=== PATIENT | female | born 1975 | race Caucasian/White ===

== ENCOUNTER 2020-05-01 11:01 | Inpatient (IN) | payer SELFPAY ==
[~2020-05-01] VITALS: Ht 172.7 cm; Wt 56.8 kg
[2020-05-01 11:44] LABS: BILIRUBIN,URINE SMALL (NEG); CLARITY,URINE CLEAR; COLOR,URINE AMBER; NITRITE,URINE NEGATIVE (NEG); PH,URINE 7.5 (<5.0-8.0); PROTEIN,URINE 100 mg/dL (NEG-TRACE)
[2020-05-01 11:50] LABS: BASO # 0.1 x10^3/uL (0.0-0.2); BASO % 3 % (0-3); EOS # 0.1 x10^3/uL (0.0-0.7); EOS % 2 % (0-3); HEMATOCRIT 40.3 % (36.0-47.0); HEMOGLOBIN 14.1 g/dL (12.0-15.5); LYMPH % 23 % (24-48); MEAN CORPUSCULAR HEMOGLOBIN 33 pg (25-35); MEAN CORPUSCULAR HGB CONC 35 g/dL (31-37); MEAN CORPUSCULAR VOLUME 93 fL (79-100); MONO # 0.3 x10^3/uL (0.0-1.1); MONO % 7 % (0-9); NEUT # 2.7 x10^3/uL (1.8-7.7); NEUT % 65 % (31-73); PLATELET COUNT 192 x10^3/uL (140-400); RED BLOOD COUNT 4.32 x10^6/uL (3.50-5.40); RED CELL DISTRIBUTION WIDTH 14.8 % (11.5-14.5); WHITE BLOOD COUNT 4.1 x10^3/uL (4.0-11.0)
[2020-05-01 11:54] LABS: ALBUMIN 3.1 g/dL (3.4-5.0); ALBUMIN/GLOBULIN RATIO 0.7 (1.0-1.7); CREATININE 0.6 mg/dL (0.6-1.0); GFR 107.6; TOTAL PROTEIN 7.7 g/dL (6.4-8.2)
[2020-05-01 11:56] LABS: POTASSIUM 2.3 mmol/L (3.5-5.1)
[2020-05-01] MEDS ORDERED: chlordiazePOXIDE HCL 25 MG CAPSULE PO ONE (12:00)
[2020-05-01] MEDS ORDERED: POTASSIUM CHLORIDE 20 MEQ TABLET.ER. PO ONE (12:00)
--- NOTE | 2020-05-01 12:09 | PHYS DOC ---
General Adult EDM: Chief Complaint: SEIZURE HPI: HPI: Patient is a 44-year-old female who presents to the emergency room after having a seizure at home. Patient states that she is currently withdrawing from alcohol. Her last drink was around 8:00 last night. She typically drinks a pint of vodka every day. She drank less than usual yesterday. She has been through withdrawal before but it is been quite some time. She is never needed admission for withdrawal. Since she had her seizure her hands have been cramped up and she has been unable to fully move them. She has been having tremors, nausea, vomiting. She generally feels unwell. Review of Systems: Review of Systems: General: Denies fever, chills, sweats, fatigue Eyes: Denies drainage, blurred vision, eye redness HENT: Denies rhinorrhea, sore throat, earache Respiratory: Denies cough, shortness of breath, wheezing Cardiac: Denies edema, palpitations, chest pain GI: Denies abdominal pain.reports nausea, vomiting MSK: Denies back pain, neck pain. Reports cramping of bilateral hands Skin: Denies rash, jaundice Neuro: Reports tremors, headache, seizure Psychiatric: Denies SI/HI Heart Score: Risk Factors: Risk Factors: DM, Current or recent (<one month) smoker, HTN, HLP, family h istory of CAD, obesity. Risk Scores: Score 0 - 3: 2.5% MACE over next 6 weeks - Discharge Home Score 4 - 6: 20.3% MACE over next 6 weeks - Admit for Clinical Observation Score 7 - 10: 72.7% MACE over next 6 weeks - Early Invasive Strategies Current Medications: Current Medications Medications (Trade) Dose Ordered Sig/Nishi Start Time Stop Time Status Last Admin Dose Admin Chlordiazepoxide (Librium) 100 mg 1X ONCE 05/01/20 12:00 05/01/20 12:01 DC Lorazepam (Ativan Inj) 1 mg 1X ONCE 05/01/20 12:00 05/01/20 12:01 DC Potassium Chloride (Klor-Con) 40 meq 1X ONCE 05/01/20 12:00 05/01/20 12:01 DC Allergies: Allergies: Allergies Coded Allergies Type Severity Reaction Last Updated Verified Penicillins Allergy Unknown 05/01/20 Yes Physical Exam: PE: General: Awake, alert, cachectic. Disheveled HEENT: Atraumatic, EOMI, PERRL, airway patent, dry oral mucosa Neck: Supple, trachea midline Respiratory: CTA bilaterally, normal effort, no wheezing/crackles CV: RRR, no murmur, cap refill <2 GI: Soft, nondistended, nontender, no masses MSK: Bilateral hands with flexion and cramping in all 5 fingers Skin: Warm, dry, intact Neuro: A&O x3, speech NL, sensory and motor grossly intact, tremors Psych: Normal affect, normal mood, not suicidal or homicidal Current Patient Data: Labs: Laboratory Tests Test 05/01/20 11:27 05/01/20 11:36 White Blood Count 4.1 x10^3/uL (4.0-11.0) Red Blood Count 4.32 x10^6/uL (3.50-5.40) Hemoglobin 14.1 g/dL (12.0-15.5) Hematocrit 40.3 % (36.0-47.0) Mean Corpuscular Volume 93 fL (79-100) Mean Corpuscular Hemoglobin 33 pg (25-35) Mean Corpuscular Hemoglobin Concent 35 g/dL (31-37) Red Cell Distribution Width 14.8 % (11.5-14.5) H Platelet Count 192 x10^3/uL (140-400) Neutrophils (%) (Auto) 65 % (31-73) Lymphocytes (%) (Auto) 23 % (24-48) L Monocytes (%) (Auto) 7 % (0-9) Eosinophils (%) (Auto) 2 % (0-3) Basophils (%) (Auto) 3 % (0-3) Neutrophils # (Auto) 2.7 x10^3/uL (1.8-7.7) Lymphocytes # (Auto) 1.0 x10^3/uL (1.0-4.8) Monocytes # (Auto) 0.3 x10^3/uL (0.0-1.1) Eosinophils # (Auto) 0.1 x10^3/uL (0.0-0.7) Basophils # (Auto) 0.1 x10^3/uL (0.0-0.2) Sodium Level 140 mmol/L (136-145) Potassium Level 2.3 mmol/L (3.5-5.1) *L Chloride Level 99 mmol/L (98-107) Carbon Dioxide Level 31 mmol/L (21-32) Anion Gap 10 (6-14) Blood Urea Nitrogen 7 mg/dL (7-20) Creatinine 0.6 mg/dL (0.6-1.0) Estimated GFR (Cockcroft-Gault) 107.6 BUN/Creatinine Ratio 12 (6-20) Glucose Level 73 mg/dL (70-99) Calcium Level 8.0 mg/dL (8.5-10.1) L Total Bilirubin 1.0 mg/dL (0.2-1.0) Aspartate Amino Transferase (AST) 157 U/L (15-37) H Alanine Aminotransferase (ALT) 96 U/L (14-59) H Alkaline Phosphatase 128 U/L (46-116) H Total Protein 7.7 g/dL (6.4-8.2) Albumin 3.1 g/dL (3.4-5.0) L Albumin/Globulin Ratio 0.7 (1.0-1.7) L Ethyl Alcohol Level 81 mg/dL (0-10) H POC Urine HCG, Qualitative Hcg negative (Negative) Laboratory Tests 05/01/20 11:27 Laboratory Tests 05/01/20 11:27 EKG: EKG: [] Radiology/Procedures: Radiology/Procedures: [] Course & Med Decision Making: Course & Med Decision Making Pertinent Labs and Imaging studies reviewed. (See chart for details) Patient is a 44-year-old female with past medical history of alcohol abuse who presents to the emergency room after having a seizure at home. Patient currently is trying to quit drinking. Her presentation is highly concerning for alcohol withdrawal. She has had seizures, hypertension, tremors. Patient has cramping in bilateral hands which is concerning for hypokalemia. Labs were ordered and patient has potassium of 2.3. Replacement will be done. She will be started on Librium and given Ativan. She will be put on seizure precautions. Patient will need to be admitted Dragon Disclaimer: Dragon Disclaimer: This electronic medical record was generated, in whole or in part, using a voice recognition dictation system. Departure Departure Impression: Primary Impression: Alcohol withdrawal seizure Additional Impression: Hypokalemia Disposition: ADMITTED INPATIENT Condition: STABLE Referrals: NO PCP (PCP) Justicifation of Admission Dx: Justifications for Admission: Justification of Admission Dx: Yes SILVIA ENGEL MD May 01, 2020 12:09
[2020-05-01 12:11] LABS: BACTERIA,URINE MANY /HPF (0-FEW); HYALINE CASTS, URINE MANY /HPF; RBC,URINE 0 /HPF (0-2); SQUAMOUS EPITHELIAL CELL,UR FEW /LPF
[2020-05-01] MEDS ORDERED: POTASSIUM CHLORIDE 20MEQ 100 ML IV ONE (12:15)
[2020-05-01] MEDS ORDERED: HALOPERIDOL LACTATE 5 MG/ML VIAL. IVP PRN (15:00)
[2020-05-01] MEDS ORDERED: chlordiazePOXIDE HCL 25 MG CAPSULE PO PRN (15:00)
--- NOTE | 2020-05-01 15:01 | PDOC2 ---
NEUROLOGY CONSULT Date of Service DOS: DATE: 05/01/20 TIME: 14:55 Reason for Consult Reason for Consult: Seizure Referring Physician Referring Physician: Dr. Cooper Source Source: Chart review, Patient History of Present Illness History of Present Illness The patient is a 44-year-old right-handed female who had a seizure this morning. She drinks 1/5 of vodka a day and stop drinking last night, was planning to cut down. She has never had a seizure or delirium tremens before. She did have a head head injury a few months ago with a fall. There is no family history of seizures. She has been having tremors, nausea, vomiting. Past Medical History Cardiovascular: No pertinent hx Past Surgical History Past Surgical History: No pertinent history Family History Family History: Cancer Social History Social History , alcohol as above, no tobacco or street drugs Current Medications Current Medications Current Medications Lorazepam (Ativan Inj) 1 mg 1X ONCE IVP Last administered on 05/01/20at 12:07; Start 05/01/20 at 12:00; Stop 05/01/20 at 12:01; Status DC Chlordiazepoxide (Librium) 100 mg 1X ONCE PO Last administered on 05/01/20at 12:07; Start 05/01/20 at 12:00; Stop 05/01/20 at 12:01; Status DC Potassium Chloride (Klor-Con) 40 meq 1X ONCE PO Last administered on 05/01/20at 12:08; Start 05/01/20 at 12:00; Stop 05/01/20 at 12:01; Status DC Potassium Chloride/Water 100 ml @ 50 mls/hr 1X ONCE IV Last administered on 05/01/20at 13:32; Start 05/01/20 at 12:15; Stop 05/01/20 at 14:14; Status DC Allergies Allergies: Coded Allergies: Penicillins (Verified Allergy, Unknown, 05/01/20) ROS Review of System Negative for fever, chills, weight loss, shortness of breath, chest pain, indigestion, hematochezia, melena, and dysuria. Full 14-point review of systems is negative. Physical Exam Physical Examination General: Well-developed, well-nourished white female in no acute distress. She looks older than stated age HEENT: Normocephalic andatraumatic.Temporal arteriespulsatile and nontender. Neck: Supple without bruit, no meningismus Musculoskeletal: Stability:see neurologic. Gait exam:see neurologic. Tone:see neurologic.Strength:see neurologic. Neurological: Mental Status:orientation, memory, attention span/concentration, language, fund of knowledge: Depressed affect, knows date and location. Cranial Nerves:Pupils equal and reactive to light, extraocular movements areintact, visual [place] are full to confrontation. Facial sensation is normal. There is no facial asymmetry. Vestibulo-ocular reflex is intact. Palate elevates and tongue protrudes in midline. All other cranial related problems are negative except as mentioned before.Reflexes:2+ and symmetric with flexor plantar responses. Motor:5/5 strength with normal tone and bulk. Coordination:Finger-nose finger and ysik-go-eirp testing are normal. Rapid alternating movements and fine finger movements are intact. Gait:Not tested. Sensory:Normal pinprick, vibration, light touch, proprioception. Vitals VITALS Vital Signs Date Time Temp Pulse Resp B/P (MAP) Pulse Ox O2 Delivery O2 Flow Rate FiO2 05/01/20 11:02 98.2 76 16 192/133 (152) 96 Room Air 98.2 Labs Labs Laboratory Tests Test 05/01/20 11:10 05/01/20 11:27 05/01/20 11:36 Urine Collection Type Unknown Urine Color Sandrine Urine Clarity Clear Urine pH 7.5 (<5.0-8.0) Urine Specific [place] 1.015 (1.000-1.030) Urine Protein 100 mg/dL (NEG-TRACE) Urine Glucose (UA) Negative mg/dL (NEG) Urine Ketones (Stick) Trace mg/dL (NEG) Urine Blood Negative (NEG) Urine Nitrite Negative (NEG) Urine Bilirubin Small (NEG) Urine Urobilinogen Dipstick 1.0 mg/dL (0.2 mg/dL) Urine Leukocyte Esterase Trace (NEG) Urine RBC 0 /HPF (0-2) Urine WBC 1-4 /HPF (0-4) Urine Squamous Epithelial Cells Few /LPF Urine Bacteria Many /HPF (0-FEW) Urine Hyaline Casts Many /HPF White Blood Count 4.1 x10^3/uL (4.0-11.0) Red Blood Count 4.32 x10^6/uL (3.50-5.40) Hemoglobin 14.1 g/dL (12.0-15.5) Hematocrit 40.3 % (36.0-47.0) Mean Corpuscular Volume 93 fL (79-100) Mean Corpuscular Hemoglobin 33 pg (25-35) Mean Corpuscular Hemoglobin Concent 35 g/dL (31-37) Red Cell Distribution Width 14.8 % (11.5-14.5) Platelet Count 192 x10^3/uL (140-400) Neutrophils (%) (Auto) 65 % (31-73) Lymphocytes (%) (Auto) 23 % (24-48) Monocytes (%) (Auto) 7 % (0-9) Eosinophils (%) (Auto) 2 % (0-3) Basophils (%) (Auto) 3 % (0-3) Neutrophils # (Auto) 2.7 x10^3/uL (1.8-7.7) Lymphocytes # (Auto) 1.0 x10^3/uL (1.0-4.8) Monocytes # (Auto) 0.3 x10^3/uL (0.0-1.1) Eosinophils # (Auto) 0.1 x10^3/uL (0.0-0.7) Basophils # (Auto) 0.1 x10^3/uL (0.0-0.2) Sodium Level 140 mmol/L (136-145) Potassium Level 2.3 mmol/L (3.5-5.1) Chloride Level 99 mmol/L (98-107) Carbon Dioxide Level 31 mmol/L (21-32) Anion Gap 10 (6-14) Blood Urea Nitrogen 7 mg/dL (7-20) Creatinine 0.6 mg/dL (0.6-1.0) Estimated GFR (Cockcroft-Gault) 107.6 BUN/Creatinine Ratio 12 (6-20) Glucose Level 73 mg/dL (70-99) Calcium Level 8.0 mg/dL (8.5-10.1) Total Bilirubin 1.0 mg/dL (0.2-1.0) Aspartate Amino Transf (AST/SGOT) 157 U/L (15-37) Alanine Aminotransferase (ALT/SGPT) 96 U/L (14-59) Alkaline Phosphatase 128 U/L (46-116) Total Protein 7.7 g/dL (6.4-8.2) Albumin 3.1 g/dL (3.4-5.0) Albumin/Globulin Ratio 0.7 (1.0-1.7) Ethyl Alcohol Level 81 mg/dL (0-10) Bedside Urine HCG, Qualitative Hcg negative (Negative) Laboratory Tests Test 05/01/20 11:10 05/01/20 11:27 05/01/20 11:36 Urine Collection Type Unknown Urine Color Sandrine Urine Clarity Clear Urine pH 7.5 (<5.0-8.0) Urine Specific [place] 1.015 (1.000-1.030) Urine Protein 100 mg/dL (NEG-TRACE) Urine Glucose (UA) Negative mg/dL (NEG) Urine Ketones (Stick) Trace mg/dL (NEG) Urine Blood Negative (NEG) Urine Nitrite Negative (NEG) Urine Bilirubin Small (NEG) Urine Urobilinogen Dipstick 1.0 mg/dL (0.2 mg/dL) Urine Leukocyte Esterase Trace (NEG) Urine RBC 0 /HPF (0-2) Urine WBC 1-4 /HPF (0-4) Urine Squamous Epithelial Cells Few /LPF Urine Bacteria Many /HPF (0-FEW) Urine Hyaline Casts Many /HPF White Blood Count 4.1 x10^3/uL (4.0-11.0) Red Blood Count 4.32 x10^6/uL (3.50-5.40) Hemoglobin 14.1 g/dL (12.0-15.5) Hematocrit 40.3 % (36.0-47.0) Mean Corpuscular Volume 93 fL (79-100) Mean Corpuscular Hemoglobin 33 pg (25-35) Mean Corpuscular Hemoglobin Concent 35 g/dL (31-37) Red Cell Distribution Width 14.8 % (11.5-14.5) Platelet Count 192 x10^3/uL (140-400) Neutrophils (%) (Auto) 65 % (31-73) Lymphocytes (%) (Auto) 23 % (24-48) Monocytes (%) (Auto) 7 % (0-9) Eosinophils (%) (Auto) 2 % (0-3) Basophils (%) (Auto) 3 % (0-3) Neutrophils # (Auto) 2.7 x10^3/uL (1.8-7.7) Lymphocytes # (Auto) 1.0 x10^3/uL (1.0-4.8) Monocytes # (Auto) 0.3 x10^3/uL (0.0-1.1) Eosinophils # (Auto) 0.1 x10^3/uL (0.0-0.7) Basophils # (Auto) 0.1 x10^3/uL (0.0-0.2) Sodium Level 140 mmol/L (136-145) Potassium Level 2.3 mmol/L (3.5-5.1) Chloride Level 99 mmol/L (98-107) Carbon Dioxide Level 31 mmol/L (21-32) Anion Gap 10 (6-14) Blood Urea Nitrogen 7 mg/dL (7-20) Creatinine 0.6 mg/dL (0.6-1.0) Estimated GFR (Cockcroft-Gault) 107.6 BUN/Creatinine Ratio 12 (6-20) Glucose Level 73 mg/dL (70-99) Calcium Level 8.0 mg/dL (8.5-10.1) Total Bilirubin 1.0 mg/dL (0.2-1.0) Aspartate Amino Transf (AST/SGOT) 157 U/L (15-37) Alanine Aminotransferase (ALT/SGPT) 96 U/L (14-59) Alkaline Phosphatase 128 U/L (46-116) Total Protein 7.7 g/dL (6.4-8.2) Albumin 3.1 g/dL (3.4-5.0) Albumin/Globulin Ratio 0.7 (1.0-1.7) Ethyl Alcohol Level 81 mg/dL (0-10) Bedside Urine HCG, Qualitative Hcg negative (Negative) Assessment/Plan Assessment/Plan Impression: New seizure, probably related to alcohol withdrawal. Recommendations: She did not have brain imaging in the emergency department, I have ordered an MRI of the brain Alcohol withdrawal protocol, see orders. Thank you for letting me help with the patient's care. ZENAIDA WHITE MD May 01, 2020 15:01
[2020-05-01] MEDS: chlordiazePOXIDE HCL 25 MG CAPSULE PO PRN (16:26)
[2020-05-01] MEDS: MULTIVIT INFUSN,ADULT 4,VIT K 10 ML, THIAMINE INJ 100 MG, FOLIC ACID INJ 1 MG in IV NOR... IV SCH (16:27)
--- NOTE | 2020-05-01 16:55 | RAD ---
MRI of the brain without contrast 05/01/2020 Clinical History: Seizure Technique: Unenhanced T1-weighted sagittal and axial, FLAIR and T2-weighted axial and coronal and gradient echo and diffusion-weighted axial images of the brain were obtained. Findings: No previous imaging studies are available for comparison. Some of the images are degraded by patient motion. There is generalized parenchymal atrophy. Patchy and a few small scattered areas of increased signal intensity are seen within the periventricular and subcortical white matter of both cerebral hemispheres on the FLAIR and T2-weighted images consistent most likely with areas of very mild small vessel ischemic disease. No acute parenchymal abnormality is seen. No extra-axial fluid collection is seen. There is no MRI evidence of acute ischemia/infarction. Images through the temporal lobes are within normal limits. The paranasal sinuses are essentially clear. Normal flow voids are seen within the major vascular structures surrounding the brain parenchyma. Impression: No acute parenchymal abnormality is seen. Electronically signed by: Johnathon Bernardo MD (05/01/2020 4:51 PM) [id number]
[2020-05-01 17:13] VITALS: BP 144/119
[2020-05-01] MEDS ORDERED: IBUPROFEN 400 MG TABLET. PO PRN (17:15)
[2020-05-01] MEDS ORDERED: ACETAMINOPHEN 325 MG TABLET. PO PRN ×2 (17:15)
[2020-05-01] MEDS ORDERED: ONDANSETRON PF 4 MG/2 ML VIAL. IVP PRN (17:15)
[2020-05-01] MEDS: POTASSIUM CHLORIDE 10MEQ 100 ML IV SCH ×2 (17:28→20:14)
[2020-05-01] MEDS ORDERED: CYCLOBENZAPRINE 10 MG TABLET. PO PRN (17:30)
--- NOTE | 2020-05-01 17:43 | PDOC1 ---
History and Physical Date of Admission Date of Admission DATE: 05/01/20 TIME: 17:22 Identification/Chief Complaint Chief Complaint Alcohol withdrawal Source Source: Patient History of Present Illness History of Present Illness Patient is a 44-year-old female with past medical history of alcohol abuse, who presents to the ER due to alcohol withdrawal seizure. Patient states she drinks roughly 1 pint of liquor daily, her last drink was last night around 8:00 PM. She had a witnessed seizure-like activity by her on the morning of admission. Patient denies any history of alcohol withdrawal or alcohol withdraw al seizure previously. She is agreeable to be admitted to the hospital to get her through this withdrawal period. She admits to musculoskeletal pain "all over ". She admits to associated muscle cramps. She denies any fever or shortness of breath. K 2.3, albumin 3.1, AST 157, ALT 96, ethanol level 81 Past Medical History Past Medical History Alcohol abuse Past Surgical History Past Surgical History: No pertinent history Family History Family History: Coronary Artery Disease Social History Smoke: <1 pack per day ALCOHOL: heavy Drugs: None Current Problem List Problem List Problems Medical Problems: (1) Alcohol withdrawal seizure Status: Acute (2) Hypokalemia Status: Acute Current Medications Current Medications Current Medications Lorazepam (Ativan Inj) 1 mg 1X ONCE IVP Last administered on 05/01/20at 12:07; Start 05/01/20 at 12:00; Stop 05/01/20 at 12:01; Status DC Chlordiazepoxide (Librium) 100 mg 1X ONCE PO Last administered on 05/01/20at 12:07; Start 05/01/20 at 12:00; Stop 05/01/20 at 12:01; Status DC Potassium Chloride (Klor-Con) 40 meq 1X ONCE PO Last administered on 05/01/20at 12:08; Start 05/01/20 at 12:00; Stop 05/01/20 at 12:01; Status DC Potassium Chloride/Water 100 ml @ 50 mls/hr 1X ONCE IV Last administered on 05/01/20at 13:32; Start 05/01/20 at 12:15; Stop 05/01/20 at 14:14; Status DC Multivitamins 10 ml/Thiamine HCl 100 mg/Folic Acid 1 mg/Sodium Chloride 1,011.2 ml @ 100 mls/ hr DAILY IV Last administered on 05/01/20at 16:27; Start 05/01/20 at 15:30; Stop 05/05/20 at 19:07 Multivitamins (Thera M Plus) 1 tab DAILY PO ; Start 05/06/20 at 09:00 Folic Acid (Folic Acid) 1 mg DAILY PO ; Start 05/06/20 at 09:00 Thiamine HCl (Thiamine Im) 100 mg DAILY IM ; Start 05/06/20 at 09:00; Stop 05/11/20 at 08:59 Chlordiazepoxide (Librium) 50 mg PRN Q1HR PRN PO For CIWA 8-14 Last administered on 05/01/20at 16:26; Start 05/01/20 at 15:00 Chlordiazepoxide (Librium) 100 mg PRN Q1HR PRN PO For CIWA 15 or greater; Start 05/01/20 at 15:00 Haloperidol Lactate (Haldol Inj) 5 mg PRN Q4HRS PRN IVP Hallucinatns,Co nfusn,Delirium Last administered on 05/01/20at 16:27; Start 05/01/20 at 15:00 Clonidine HCl (Catapres) 0.1 mg PRN Q1HR PRN PO SBP > 180 or DBP > 100, MRX3; Start 05/01/20 at 15:00 Acetaminophen (Tylenol) 650 mg PRN Q6HRS PRN PO headache; Start 05/01/20 at 17:15 Potassium Chloride/Water 100 ml @ 100 mls/hr Q1H IV ; Start 05/01/20 at 18:00; Stop 05/01/20 at 19:59 Lorazepam (Ativan Inj) 1 mg PRN Q4HRS PRN IVP ANXIETY / AGITATION; Start 05/01/20 at 17:15 Ondansetron HCl (Zofran) 4 mg PRN Q6HRS PRN IVP NAUSEA/VOMITING; Start 05/01/20 at 17:15 Zolpidem Tartrate (Ambien) 5 mg PRN QHS PRN PO INSOMNIA, MAY REPEAT IN 1HR; Start 05/01/20 at 17:15 Acetaminophen (Tylenol) 650 mg PRN Q6HRS PRN PO Headaches, Temp > 101.5F; Start 05/01/20 at 17:15 Ibuprofen (Motrin) 400 mg PRN Q6HRS PRN PO MILD PAIN 1-3; Start 05/01/20 at 17:15 Cyclobenzaprine HCl (Flexeril) 10 mg PRN Q6HRS PRN PO MUSCLE PAIN; Start 05/01/20 at 17:30 Allergies Allergies: Coded Allergies: Penicillins (Verified Allergy, Unknown, 05/01/20) ROS Review of System GENERAL: No history of weight change, weakness or fevers. SKIN: No bruising, hair changes or rashes. EYES: No blurred, double or loss of vision. NOSE AND THROAT: No history of nosebleeds, hoarseness or sore throat. HEART: Denies chest pain, denies palpitations. LUNGS: Denies cough, hemoptysis, wheezing or shortness of breath. GASTROINTESTINAL: Denies nausea, vomiting, abdominal pain. GENITOURINARY: Denies dysuria, frequency, urgency, hematuria. NEUROLOGIC: Seizure. Denies history of numbness, tingling, tremor or weakness. PSYCHIATRIC: Denies anxiety, denies depression. ENDOCRINE: No history of heat or cold intolerance, polyuria or polydipsia. EXTREMITIES: Muscle cramps. Denies muscle weakness, pain on walking or stiffness. Physical Exam Physical Exam General: Alert, Oriented X3, Cooperative, No acute distress HEENT: PERRLA, EOMI Lungs: Clear to auscultation, Normal air movement Heart: RRR, no murmurs Cardiovascular: S1, S2 Abdomen: Normal bowel sounds, Soft, No tenderness Extremities: No clubbing, No cyanosis Skin: No rashes, No significant lesion Neuro: Normal speech, Normal tone, Sensation intact Psych/Mental Status: Mental status NL, Mood NL Vitals Vitals Vital Signs Date Time Temp Pulse Resp B/P (MAP) Pulse Ox O2 Delivery O2 Flow Rate FiO2 05/01/20 17:13 98.2 89 18 144/119 (127) 98 Room Air 98.2 Labs Labs Laboratory Tests Test 05/01/20 11:10 05/01/20 11:27 05/01/20 11:36 Urine Collection Type Unknown Urine Color Sandrine Urine Clarity Clear Urine pH 7.5 (<5.0-8.0) Urine Specific [place] 1.015 (1.000-1.030) Urine Protein 100 mg/dL (NEG-TRACE) Urine Glucose (UA) Negative mg/dL (NEG) Urine Ketones (Stick) Trace mg/dL (NEG) Urine Blood Negative (NEG) Urine Nitrite Negative (NEG) Urine Bilirubin Small (NEG) Urine Urobilinogen Dipstick 1.0 mg/dL (0.2 mg/dL) Urine Leukocyte Esterase Trace (NEG) Urine RBC 0 /HPF (0-2) Urine WBC 1-4 /HPF (0-4) Urine Squamous Epithelial Cells Few /LPF Urine Bacteria Many /HPF (0-FEW) Urine Hyaline Casts Many /HPF White Blood Count 4.1 x10^3/uL (4.0-11.0) Red Blood Count 4.32 x10^6/uL (3.50-5.40) Hemoglobin 14.1 g/dL (12.0-15.5) Hematocrit 40.3 % (36.0-47.0) Mean Corpuscular Volume 93 fL (79-100) Mean Corpuscular Hemoglobin 33 pg (25-35) Mean Corpuscular Hemoglobin Concent 35 g/dL (31-37) Red Cell Distribution Width 14.8 % (11.5-14.5) Platelet Count 192 x10^3/uL (140-400) Neutrophils (%) (Auto) 65 % (31-73) Lymphocytes (%) (Auto) 23 % (24-48) Monocytes (%) (Auto) 7 % (0-9) Eosinophils (%) (Auto) 2 % (0-3) Basophils (%) (Auto) 3 % (0-3) Neutrophils # (Auto) 2.7 x10^3/uL (1.8-7.7) Lymphocytes # (Auto) 1.0 x10^3/uL (1.0-4.8) Monocytes # (Auto) 0.3 x10^3/uL (0.0-1.1) Eosinophils # (Auto) 0.1 x10^3/uL (0.0-0.7) Basophils # (Auto) 0.1 x10^3/uL (0.0-0.2) Sodium Level 140 mmol/L (136-145) Potassium Level 2.3 mmol/L (3.5-5.1) Chloride Level 99 mmol/L (98-107) Carbon Dioxide Level 31 mmol/L (21-32) Anion Gap 10 (6-14) Blood Urea Nitrogen 7 mg/dL (7-20) Creatinine 0.6 mg/dL (0.6-1.0) Estimated GFR (Cockcroft-Gault) 107.6 BUN/Creatinine Ratio 12 (6-20) Glucose Level 73 mg/dL (70-99) Calcium Level 8.0 mg/dL (8.5-10.1) Total Bilirubin 1.0 mg/dL (0.2-1.0) Aspartate Amino Transf (AST/SGOT) 157 U/L (15-37) Alanine Aminotransferase (ALT/SGPT) 96 U/L (14-59) Alkaline Phosphatase 128 U/L (46-116) Total Protein 7.7 g/dL (6.4-8.2) Albumin 3.1 g/dL (3.4-5.0) Albumin/Globulin Ratio 0.7 (1.0-1.7) Ethyl Alcohol Level 81 mg/dL (0-10) Bedside Urine HCG, Qualitative Hcg negative (Negative) Laboratory Tests Test 05/01/20 11:10 05/01/20 11:27 05/01/20 11:36 Urine Collection Type Unknown Urine Color Sandrine Urine Clarity Clear Urine pH 7.5 (<5.0-8.0) Urine Specific [place] 1.015 (1.000-1.030) Urine Protein 100 mg/dL (NEG-TRACE) Urine Glucose (UA) Negative mg/dL (NEG) Urine Ketones (Stick) Trace mg/dL (NEG) Urine Blood Negative (NEG) Urine Nitrite Negative (NEG) Urine Bilirubin Small (NEG) Urine Urobilinogen Dipstick 1.0 mg/dL (0.2 mg/dL) Urine Leukocyte Esterase Trace (NEG) Urine RBC 0 /HPF (0-2) Urine WBC 1-4 /HPF (0-4) Urine Squamous Epithelial Cells Few /LPF Urine Bacteria Many /HPF (0-FEW) Urine Hyaline Casts Many /HPF White Blood Count 4.1 x10^3/uL (4.0-11.0) Red Blood Count 4.32 x10^6/uL (3.50-5.40) Hemoglobin 14.1 g/dL (12.0-15.5) Hematocrit 40.3 % (36.0-47.0) Mean Corpuscular Volume 93 fL (79-100) Mean Corpuscular Hemoglobin 33 pg (25-35) Mean Corpuscular Hemoglobin Concent 35 g/dL (31-37) Red Cell Distribution Width 14.8 % (11.5-14.5) Platelet Count 192 x10^3/uL (140-400) Neutrophils (%) (Auto) 65 % (31-73) Lymphocytes (%) (Auto) 23 % (24-48) Monocytes (%) (Auto) 7 % (0-9) Eosinophils (%) (Auto) 2 % (0-3) Basophils (%) (Auto) 3 % (0-3) Neutrophils # (Auto) 2.7 x10^3/uL (1.8-7.7) Lymphocytes # (Auto) 1.0 x10^3/uL (1.0-4.8) Monocytes # (Auto) 0.3 x10^3/uL (0.0-1.1) Eosinophils # (Auto) 0.1 x10^3/uL (0.0-0.7) Basophils # (Auto) 0.1 x10^3/uL (0.0-0.2) Sodium Level 140 mmol/L (136-145) Potassium Level 2.3 mmol/L (3.5-5.1) Chloride Level 99 mmol/L (98-107) Carbon Dioxide Level 31 mmol/L (21-32) Anion Gap 10 (6-14) Blood Urea Nitrogen 7 mg/dL (7-20) Creatinine 0.6 mg/dL (0.6-1.0) Estimated GFR (Cockcroft-Gault) 107.6 BUN/Creatinine Ratio 12 (6-20) Glucose Level 73 mg/dL (70-99) Calcium Level 8.0 mg/dL (8.5-10.1) Total Bilirubin 1.0 mg/dL (0.2-1.0) Aspartate Amino Transf (AST/SGOT) 157 U/L (15-37) Alanine Aminotransferase (ALT/SGPT) 96 U/L (14-59) Alkaline Phosphatase 128 U/L (46-116) Total Protein 7.7 g/dL (6.4-8.2) Albumin 3.1 g/dL (3.4-5.0) Albumin/Globulin Ratio 0.7 (1.0-1.7) Ethyl Alcohol Level 81 mg/dL (0-10) Bedside Urine HCG, Qualitative Hcg negative (Negative) VTE Prophylaxis Ordered VTE Prophylaxis Devices: Yes VTE Pharmacological Prophylaxi: No Assessment/Plan Assessment/Plan Alcohol withdrawal Alcohol withdrawal seizures Hypokalemia Malnutrition Plan: We will admit patient for alcohol withdrawals and withdrawal seizure. Thiamine 100 mg IM daily, folic acid 1 mg daily, daily multivitamin. Librium 50 mg as needed, Ativan 1 mg as needed withdrawal symptoms. Haldol 5 mg as needed hallucinations, clonidine 0.1 mg as needed for hypertension. Consult to neurology due to seizure activity. MRI pending. Seizure activity likely secondary to alcohol withdrawals. Replace potassium as needed. Will check magnesium and phosphorus in the morning. FEN - Cardiac diet PPX -pneumatic compression devices FULL CODE Dispo - inpatient for above Justifications for Admission Other Justification Alcohol withdrawal MAURILIO LANDERS MD May 01, 2020 17:43
[2020-05-01 19:30] VITALS: BP 174/122
[2020-05-01] MEDS: ZOLPIDEM 5 MG TABLET. PO PRN ×2 (20:15→23:06)
[2020-05-01] MEDS: cloNIDine HCL 0.1 MG TABLET PO PRN (23:06)
[2020-05-01 23:12] VITALS: BP 186/129
[2020-05-02 02:55] VITALS: BP 172/132
[2020-05-02 04:31] LABS: BASO # 0.1 x10^3/uL (0.0-0.2); BASO % 1 % (0-3); EOS # 0.2 x10^3/uL (0.0-0.7); EOS % 3 % (0-3); HEMATOCRIT 39.7 % (36.0-47.0); HEMOGLOBIN 13.3 g/dL (12.0-15.5); LYMPH # 1.5 x10^3/uL (1.0-4.8); LYMPH % 34 % (24-48); MEAN CORPUSCULAR HEMOGLOBIN 32 pg (25-35); MEAN CORPUSCULAR HGB CONC 34 g/dL (31-37); MEAN CORPUSCULAR VOLUME 96 fL (79-100); MONO # 0.4 x10^3/uL (0.0-1.1); MONO % 8 % (0-9); NEUT # 2.4 x10^3/uL (1.8-7.7); NEUT % 54 % (31-73); PLATELET COUNT 143 x10^3/uL (140-400); RED BLOOD COUNT 4.15 x10^6/uL (3.50-5.40); RED CELL DISTRIBUTION WIDTH 14.3 % (11.5-14.5); WHITE BLOOD COUNT 4.5 x10^3/uL (4.0-11.0)
[2020-05-02 04:42] LABS: CALCIUM 8.3 mg/dL (8.5-10.1); CREATININE 0.6 mg/dL (0.6-1.0); GFR 107.6
[2020-05-02 04:44] LABS: POTASSIUM 2.7 mmol/L (3.5-5.1)
[2020-05-02 04:47] LABS: MAGNESIUM 1.6 mg/dL (1.8-2.4); PHOSPHORUS 3.7 mg/dL (2.6-4.7)
[2020-05-02] MEDS ORDERED: POTASSIUM CHLORIDE 20 MEQ TABLET.ER. PO ONE (06:00)
[2020-05-02 07:00] VITALS: BP 151/119
[2020-05-02] MEDS: cloNIDine HCL 0.1 MG TABLET PO PRN ×2 (08:23→10:26)
[2020-05-02] MEDS: chlordiazePOXIDE HCL 25 MG CAPSULE PO PRN ×2 (08:50→10:41)
--- NOTE | 2020-05-02 09:04 | PDOC ---
PROGRESS NOTES Date of Service DATE: 05/02/20 TIME: 09:02 Assessment Problems Medical Problems: (1) Alcohol withdrawal seizure Status: Acute (2) Hypokalemia Status: Acute New seizure, related to alcohol withdrawal. Plan Psychiatric assessment team Alcohol withdrawal protocol Discharge as soon as later today. Subjective Feels tremulous, strongly wants to quit alcohol use Objective Vital Signs Date Time Temp Pulse Resp B/P (MAP) Pulse Ox O2 Delivery O2 Flow Rate FiO2 05/02/20 08:30 Room Air 05/02/20 08:23 69 151/119 05/02/20 02:55 97.7 16 95 97.7 Intake and Output 05/02/20 07:00 Intake Total 2050 ml Balance 2050 ml Intake Oral 650 ml IV Total 100 ml Other 1300 ml # Voids 5 PHYSICAL EXAM Alert. Oriented to time, place and person. Tearfully asking for help with her alcoholism PERRL. EOMI. CN: no focal findings. Muscle tone: normal. Muscle strength: 5/5 DTR: 2+ Plantar reflex: flexor Gait: not examined in bed. Sensory exam: no abnormal findings. No cerebellar signs elicited. Review of Relevant I have reviewed the following items danny (where applicable) has been applied. Labs Laboratory Tests Test 05/01/20 11:10 05/01/20 11:27 05/01/20 11:36 05/02/20 03:35 Urine Collection Type Unknown Urine Color Sandrine Urine Clarity Clear Urine pH 7.5 (<5.0-8.0) Urine Specific [place] 1.015 (1.000-1.030) Urine Protein 100 mg/dL (NEG-TRACE) Urine Glucose (UA) Negative mg/dL (NEG) Urine Ketones (Stick) Trace mg/dL (NEG) Urine Blood Negative (NEG) Urine Nitrite Negative (NEG) Urine Bilirubin Small (NEG) Urine Urobilinogen Dipstick 1.0 mg/dL (0.2 mg/dL) Urine Leukocyte Esterase Trace (NEG) Urine RBC 0 /HPF (0-2) Urine WBC 1-4 /HPF (0-4) Urine Squamous Epithelial Cells Few /LPF Urine Bacteria Many /HPF (0-FEW) Urine Hyaline Casts Many /HPF White Blood Count 4.1 x10^3/uL (4.0-11.0) 4.5 x10^3/uL (4.0-11.0) Red Blood Count 4.32 x10^6/uL (3.50-5.40) 4.15 x10^6/uL (3.50-5.40) Hemoglobin 14.1 g/dL (12.0-15.5) 13.3 g/dL (12.0-15.5) Hematocrit 40.3 % (36.0-47.0) 39.7 % (36.0-47.0) Mean Corpuscular Volume 93 fL (79-100) 96 fL (79-100) Mean Corpuscular Hemoglobin 33 pg (25-35) 32 pg (25-35) Mean Corpuscular Hemoglobin Concent 35 g/dL (31-37) 34 g/dL (31-37) Red Cell Distribution Width 14.8 % (11.5-14.5) 14.3 % (11.5-14.5) Platelet Count 192 x10^3/uL (140-400) 143 x10^3/uL (140-400) Neutrophils (%) (Auto) 65 % (31-73) 54 % (31-73) Lymphocytes (%) (Auto) 23 % (24-48) 34 % (24-48) Monocytes (%) (Auto) 7 % (0-9) 8 % (0-9) Eosinophils (%) (Auto) 2 % (0-3) 3 % (0-3) Basophils (%) (Auto) 3 % (0-3) 1 % (0-3) Neutrophils # (Auto) 2.7 x10^3/uL (1.8-7.7) 2.4 x10^3/uL (1.8-7.7) Lymphocytes # (Auto) 1.0 x10^3/uL (1.0-4.8) 1.5 x10^3/uL (1.0-4.8) Monocytes # (Auto) 0.3 x10^3/uL (0.0-1.1) 0.4 x10^3/uL (0.0-1.1) Eosinophils # (Auto) 0.1 x10^3/uL (0.0-0.7) 0.2 x10^3/uL (0.0-0.7) Basophils # (Auto) 0.1 x10^3/uL (0.0-0.2) 0.1 x10^3/uL (0.0-0.2) Sodium Level 140 mmol/L (136-145) 140 mmol/L (136-145) Potassium Level 2.3 mmol/L (3.5-5.1) 2.7 mmol/L (3.5-5.1) Chloride Level 99 mmol/L (98-107) 101 mmol/L (98-107) Carbon Dioxide Level 31 mmol/L (21-32) 32 mmol/L (21-32) Anion Gap 10 (6-14) 7 (6-14) Blood Urea Nitrogen 7 mg/dL (7-20) 10 mg/dL (7-20) Creatinine 0.6 mg/dL (0.6-1.0) 0.6 mg/dL (0.6-1.0) Estimated GFR (Cockcroft-Gault) 107.6 107.6 BUN/Creatinine Ratio 12 (6-20) Glucose Level 73 mg/dL (70-99) 86 mg/dL (70-99) Calcium Level 8.0 mg/dL (8.5-10.1) 8.3 mg/dL (8.5-10.1) Total Bilirubin 1.0 mg/dL (0.2-1.0) Aspartate Amino Transf (AST/SGOT) 157 U/L (15-37) Alanine Aminotransferase (ALT/SGPT) 96 U/L (14-59) Alkaline Phosphatase 128 U/L (46-116) Total Protein 7.7 g/dL (6.4-8.2) Albumin 3.1 g/dL (3.4-5.0) Albumin/Globulin Ratio 0.7 (1.0-1.7) Ethyl Alcohol Level 81 mg/dL (0-10) Bedside Urine HCG, Qualitative Hcg negative (Negative) Phosphorus Level 3.7 mg/dL (2.6-4.7) Magnesium Level 1.6 mg/dL (1.8-2.4) Creatine Kinase 147 U/L (26-192) Laboratory Tests Test 05/01/20 11:10 05/01/20 11:27 05/01/20 11:36 05/02/20 03:35 Urine Collection Type Unknown Urine Color Sandrine Urine Clarity Clear Urine pH 7.5 (<5.0-8.0) Urine Specific [place] 1.015 (1.000-1.030) Urine Protein 100 mg/dL (NEG-TRACE) Urine Glucose (UA) Negative mg/dL (NEG) Urine Ketones (Stick) Trace mg/dL (NEG) Urine Blood Negative (NEG) Urine Nitrite Negative (NEG) Urine Bilirubin Small (NEG) Urine Urobilinogen Dipstick 1.0 mg/dL (0.2 mg/dL) Urine Leukocyte Esterase Trace (NEG) Urine RBC 0 /HPF (0-2) Urine WBC 1-4 /HPF (0-4) Urine Squamous Epithelial Cells Few /LPF Urine Bacteria Many /HPF (0-FEW) Urine Hyaline Casts Many /HPF White Blood Count 4.1 x10^3/uL (4.0-11.0) 4.5 x10^3/uL (4.0-11.0) Red Blood Count 4.32 x10^6/uL (3.50-5.40) 4.15 x10^6/uL (3.50-5.40) Hemoglobin 14.1 g/dL (12.0-15.5) 13.3 g/dL (12.0-15.5) Hematocrit 40.3 % (36.0-47.0) 39.7 % (36.0-47.0) Mean Corpuscular Volume 93 fL (79-100) 96 fL (79-100) Mean Corpuscular Hemoglobin 33 pg (25-35) 32 pg (25-35) Mean Corpuscular Hemoglobin Concent 35 g/dL (31-37) 34 g/dL (31-37) Red Cell Distribution Width 14.8 % (11.5-14.5) 14.3 % (11.5-14.5) Platelet Count 192 x10^3/uL (140-400) 143 x10^3/uL (140-400) Neutrophils (%) (Auto) 65 % (31-73) 54 % (31-73) Lymphocytes (%) (Auto) 23 % (24-48) 34 % (24-48) Monocytes (%) (Auto) 7 % (0-9) 8 % (0-9) Eosinophils (%) (Auto) 2 % (0-3) 3 % (0-3) Basophils (%) (Auto) 3 % (0-3) 1 % (0-3) Neutrophils # (Auto) 2.7 x10^3/uL (1.8-7.7) 2.4 x10^3/uL (1.8-7.7) Lymphocytes # (Auto) 1.0 x10^3/uL (1.0-4.8) 1.5 x10^3/uL (1.0-4.8) Monocytes # (Auto) 0.3 x10^3/uL (0.0-1.1) 0.4 x10^3/uL (0.0-1.1) Eosinophils # (Auto) 0.1 x10^3/uL (0.0-0.7) 0.2 x10^3/uL (0.0-0.7) Basophils # (Auto) 0.1 x10^3/uL (0.0-0.2) 0.1 x10^3/uL (0.0-0.2) Sodium Level 140 mmol/L (136-145) 140 mmol/L (136-145) Potassium Level 2.3 mmol/L (3.5-5.1) 2.7 mmol/L (3.5-5.1) Chloride Level 99 mmol/L (98-107) 101 mmol/L (98-107) Carbon Dioxide Level 31 mmol/L (21-32) 32 mmol/L (21-32) Anion Gap 10 (6-14) 7 (6-14) Blood Urea Nitrogen 7 mg/dL (7-20) 10 mg/dL (7-20) Creatinine 0.6 mg/dL (0.6-1.0) 0.6 mg/dL (0.6-1.0) Estimated GFR (Cockcroft-Gault) 107.6 107.6 BUN/Creatinine Ratio 12 (6-20) Glucose Level 73 mg/dL (70-99) 86 mg/dL (70-99) Calcium Level 8.0 mg/dL (8.5-10.1) 8.3 mg/dL (8.5-10.1) Total Bilirubin 1.0 mg/dL (0.2-1.0) Aspartate Amino Transf (AST/SGOT) 157 U/L (15-37) Alanine Aminotransferase (ALT/SGPT) 96 U/L (14-59) Alkaline Phosphatase 128 U/L (46-116) Total Protein 7.7 g/dL (6.4-8.2) Albumin 3.1 g/dL (3.4-5.0) Albumin/Globulin Ratio 0.7 (1.0-1.7) Ethyl Alcohol Level 81 mg/dL (0-10) Bedside Urine HCG, Qualitative Hcg negative (Negative) Phosphorus Level 3.7 mg/dL (2.6-4.7) Magnesium Level 1.6 mg/dL (1.8-2.4) Creatine Kinase 147 U/L (26-192) Medications Current Medications Lorazepam (Ativan Inj) 1 mg 1X ONCE IVP Last administered on 05/01/20at 12:07; Start 05/01/20 at 12:00; Stop 05/01/20 at 12:01; Status DC Chlordiazepoxide (Librium) 100 mg 1X ONCE PO Last administered on 05/01/20at 12:07; Start 05/01/20 at 12:00; Stop 05/01/20 at 12:01; Status DC Potassium Chloride (Klor-Con) 40 meq 1X ONCE PO Last administered on 05/01/20at 12:08; Start 05/01/20 at 12:00; Stop 05/01/20 at 12:01; Status DC Potassium Chloride/Water 100 ml @ 50 mls/hr 1X ONCE IV Last administered on 05/01/20at 13:32; Start 05/01/20 at 12:15; Stop 05/01/20 at 14:14; Status DC Multivitamins 10 ml/Thiamine HCl 100 mg/Folic Acid 1 mg/Sodium Chloride 1,011.2 ml @ 100 mls/ hr DAILY IV Last administered on 05/01/20at 16:27; Start 05/01/20 at 15:30; Stop 05/05/20 at 19:07 Multivitamins (Thera M Plus) 1 tab DAILY PO ; Start 05/06/20 at 09:00 Folic Acid (Folic Acid) 1 mg DAILY PO ; Start 05/06/20 at 09:00 Thiamine HCl (Thiamine Im) 100 mg DAILY IM ; Start 05/06/20 at 09:00; Stop 05/11/20 at 08:59 Chlordiazepoxide (Librium) 50 mg PRN Q1HR PRN PO For CIWA 8-14 Last administered on 05/02/20at 08:50; Start 05/01/20 at 15:00 Chlordiazepoxide (Librium) 100 mg PRN Q1HR PRN PO For CIWA 15 or greater; Start 05/01/20 at 15:00 Haloperidol Lactate (Haldol Inj) 5 mg PRN Q4HRS PRN IVP Hallucinatns,Confusn,Delirium Last administered on 05/01/20at 16:27; Start 05/01/20 at 15:00 Clonidine HCl (Catapres) 0.1 mg PRN Q1HR PRN PO SBP > 180 or DBP > 100, MRX3 Last administered on 05/02/20at 08:23; Start 05/01/20 at 15:00 Acetaminophen (Tylenol) 650 mg PRN Q6HRS PRN PO headache Last administered on 05/01/20at 17:27; Start 05/01/20 at 17:15 Potassium Chloride/Water 100 ml @ 100 mls/hr Q1H IV Last administered on 05/01/20at 20:14; Start 05/01/20 at 18:00; Stop 05/01/20 at 19:59; Status DC Lorazepam (Ativan Inj) 1 mg PRN Q4HRS PRN IVP ANXIETY / AGITATION; Start 05/01/20 at 17:15 Ondansetron HCl (Zofran) 4 mg PRN Q6HRS PRN IVP NAUSEA/VOMITING; Start 05/01/20 at 17:15 Zolpidem Tartrate (Ambien) 5 mg PRN QHS PRN PO INSOMNIA, MAY REPEAT IN 1HR Last administered on 05/01/20at 23:06; Start 05/01/20 at 17:15 Acetaminophen (Tylenol) 650 mg PRN Q6HRS PRN PO Headaches, Temp > 101.5F; Start 05/01/20 at 17:15 Ibuprofen (Motrin) 400 mg PRN Q6HRS PRN PO MILD PAIN 1-3; Start 05/01/20 at 17:15 Cyclobenzaprine HCl (Flexeril) 10 mg PRN Q6HRS PRN PO MUSCLE PAIN; Start 05/01/20 at 17:30 Potassium Chloride (Klor-Con) 40 meq 1X ONCE PO Last administered on 05/02/20at 05:32; Start 05/02/20 at 06:00; Stop 05/02/20 at 06:01; Status DC Vitals/I & O Vital Sign - Last 24 Hours 05/01/20 05/01/20 05/01/20 05/01/20 11:02 11:30 12:00 12:30 Temp 98.2 98.2 Pulse 76 77 72 77 Resp 16 24 18 16 B/P (MAP) 192/133 (152) 196/128 (150) 193/121 (145) 187/118 (141) Pulse Ox 96 95 96 99 O2 Delivery Room Air Room Air Room Air Room Air 05/01/20 05/01/20 05/01/20 05/01/20 13:00 14:00 17:13 19:30 Temp 98.2 98.5 98.2 98.5 Pulse 78 70 89 72 Resp 16 16 18 16 B/P (MAP) 170/115 (133) 165/100 (121) 144/119 (127) 174/122 (139) Pulse Ox 96 96 98 94 O2 Delivery Room Air Room Air Room Air Room Air 05/01/20 05/01/20 05/01/20 05/02/20 20:00 23:06 23:12 02:55 Temp 98.5 97.7 98.5 97.7 Pulse 72 76 84 Resp 16 16 B/P (MAP) 186/129 186/129 (148) 172/132 (145) Pulse Ox 93 95 O2 Delivery Room Air Room Air Room Air 05/02/20 05/02/20 08:23 08:30 Pulse 69 B/P (MAP) 151/119 O2 Delivery Room Air Intake and Output 05/01/20 05/01/20 05/02/20 15:00 23:00 07:00 Intake Total 400 ml 1650 ml Balance 400 ml 1650 ml Images MRI of the brain without contrast 05/01/2020 Clinical History: Seizure Technique: Unenhanced T1-weighted sagittal and axial, FLAIR and T2-weighted axial and coronal and gradient echo and diffusion-weighted axial images of the brain were obtained. Findings: No previous imaging studies are available for comparison. Some of the images are degraded by patient motion. There is generalized parenchymal atrophy. Patchy and a few small scattered areas of increased signal intensity are seen within the periventricular and subcortical white matter of both cerebral hemispheres on the FLAIR and T2-weighted images consistent most likely with areas of very mild small vessel ischemic disease. No acute parenchymal abnormality is seen. No extra-axial fluid collection is seen. There is no MRI evidence of acute ischemia/infarction. Images through the temporal lobes are within normal limits. The paranasal sinuses are essentially clear. Normal flow voids are seen within the major vascular structures surrounding the brain parenchyma. Impression: No acute parenchymal abnormality is seen. Justicifation of Admission Dx: Justifications for Admission: Justification of Admission Dx: Yes ZENAIDA WHITE MD May 02, 2020 09:04
[2020-05-02] MEDS: MULTIVIT INFUSN,ADULT 4,VIT K 10 ML, THIAMINE INJ 100 MG, FOLIC ACID INJ 1 MG in IV NOR... IV SCH (09:25)
[2020-05-02 09:51] VITALS: BP 166/123
--- NOTE | 2020-05-02 10:35 | NUR ---
SW following. Discussed with RN, pt from home with , room air, cardiac diet. Discussed with Dr. Cooper - PAT consult for ETOH use/abuse. MICHELLE notified PAT of referral. MICHELLE will continue to follow. Addendum: 05/02/20 at 1224 by EDYTA MARTINEZ Pt cleared by Ross with PAT - pt provided with resources. Pt considering leaving AMA. MICHELLE will continue to follow.
[2020-05-02 11:00] VITALS: BP 169/117
--- NOTE | 2020-05-02 11:06 | PDOC ---
[employer] PROGRESS NOTE Date of Service DOS: DATE: 05/02/20 TIME: 11:02 Chief Complaint Chief Complaint Alcohol withdrawal Alcohol withdrawal seizures Hypokalemia Malnutrition Plan: We will admit patient for alcohol withdrawals and withdrawal seizure. Thiamine 100 mg IM daily, folic acid 1 mg daily, daily multivitamin. Librium 50 mg as needed, Ativan 1 mg as needed withdrawal symptoms. Haldol 5 mg as needed hallucinations, clonidine 0.1 mg as needed for hypertension. Consult to neurology due to seizure activity. MRI pending. Seizure activity likely secondary to alcohol withdrawals. Replace potassium as needed. Will check magnesium and phosphorus in the morning. FEN - Cardiac diet PPX -pneumatic compression devices FULL CODE Dispo - inpatient for above History of Present Illness History of Present Illness Patient is a 44-year-old female with past medical history of alcohol abuse, who presents to the ER due to alcohol withdrawal seizure. Patient states she drinks roughly 1 pint of liquor daily, her last drink was last night around 8:00 PM. She had a witnessed seizure-like activity by her on the morning of admission. Patient denies any history of alcohol withdrawal or alcohol withdrawal seizure previously. She is agreeable to be admitted to the hospital to get her through this withdrawal period. She admits to musculoskeletal pain "all over ". She admits to associated muscle cramps. She denies any fever or shortness of breath. 05/02/2020 Potassium and magnesium still low, will replace. Will have PAT team assessed patient. Intermittent tremors. Patient denies any fever. Vitals/I&O Vitals/I&O: Vital Signs Date Time Temp Pulse Resp B/P (MAP) Pulse Ox O2 Delivery O2 Flow Rate FiO2 05/02/20 10:26 69 166/123 05/02/20 08:30 Room Air 05/02/20 07:00 97.8 20 95 97.8 I & O 05/01/20 05/01/20 05/02/20 15:00 23:00 07:00 Intake Total 400 ml 1650 ml Balance 400 ml 1650 ml Physical Exam General: Alert Heart: Regular rate Lungs: Clear Abdomen: Normal bowel sounds, Soft Extremities: No clubbing, No cyanosis Skin: No rashes, No breakdown Labs Labs: Laboratory Tests Test 05/01/20 11:10 05/01/20 11:27 05/01/20 11:36 05/02/20 03:35 Urine Collection Type Unknown Urine Color Sandrine Urine Clarity Clear Urine pH 7.5 (<5.0-8.0) Urine Specific [place] 1.015 (1.000-1.030) Urine Protein 100 mg/dL (NEG-TRACE) Urine Glucose (UA) Negative mg/dL (NEG) Urine Ketones (Stick) Trace mg/dL (NEG) Urine Blood Negative (NEG) Urine Nitrite Negative (NEG) Urine Bilirubin Small (NEG) Urine Urobilinogen Dipstick 1.0 mg/dL (0.2 mg/dL) Urine Leukocyte Esterase Trace (NEG) Urine RBC 0 /HPF (0-2) Urine WBC 1-4 /HPF (0-4) Urine Squamous Epithelial Cells Few /LPF Urine Bacteria Many /HPF (0-FEW) Urine Hyaline Casts Many /HPF White Blood Count 4.1 x10^3/uL (4.0-11.0) 4.5 x10^3/uL (4.0-11.0) Red Blood Count 4.32 x10^6/uL (3.50-5.40) 4.15 x10^6/uL (3.50-5.40) Hemoglobin 14.1 g/dL (12.0-15.5) 13.3 g/dL (12.0-15.5) Hematocrit 40.3 % (36.0-47.0) 39.7 % (36.0-47.0) Mean Corpuscular Volume 93 fL (79-100) 96 fL (79-100) Mean Corpuscular Hemoglobin 33 pg (25-35) 32 pg (25-35) Mean Corpuscular Hemoglobin Concent 35 g/dL (31-37) 34 g/dL (31-37) Red Cell Distribution Width 14.8 % (11.5-14.5) 14.3 % (11.5-14.5) Platelet Count 192 x10^3/uL (140-400) 143 x10^3/uL (140-400) Neutrophils (%) (Auto) 65 % (31-73) 54 % (31-73) Lymphocytes (%) (Auto) 23 % (24-48) 34 % (24-48) Monocytes (%) (Auto) 7 % (0-9) 8 % (0-9) Eosinophils (%) (Auto) 2 % (0-3) 3 % (0-3) Basophils (%) (Auto) 3 % (0-3) 1 % (0-3) Neutrophils # (Auto) 2.7 x10^3/uL (1.8-7.7) 2.4 x10^3/uL (1.8-7.7) Lymphocytes # (Auto) 1.0 x10^3/uL (1.0-4.8) 1.5 x10^3/uL (1.0-4.8) Monocytes # (Auto) 0.3 x10^3/uL (0.0-1.1) 0.4 x10^3/uL (0.0-1.1) Eosinophils # (Auto) 0.1 x10^3/uL (0.0-0.7) 0.2 x10^3/uL (0.0-0.7) Basophils # (Auto) 0.1 x10^3/uL (0.0-0.2) 0.1 x10^3/uL (0.0-0.2) Sodium Level 140 mmol/L (136-145) 140 mmol/L (136-145) Potassium Level 2.3 mmol/L (3.5-5.1) 2.7 mmol/L (3.5-5.1) Chloride Level 99 mmol/L (98-107) 101 mmol/L (98-107) Carbon Dioxide Level 31 mmol/L (21-32) 32 mmol/L (21-32) Anion Gap 10 (6-14) 7 (6-14) Blood Urea Nitrogen 7 mg/dL (7-20) 10 mg/dL (7-20) Creatinine 0.6 mg/dL (0.6-1.0) 0.6 mg/dL (0.6-1.0) Estimated GFR (Cockcroft-Gault) 107.6 107.6 BUN/Creatinine Ratio 12 (6-20) Glucose Level 73 mg/dL (70-99) 86 mg/dL (70-99) Calcium Level 8.0 mg/dL (8.5-10.1) 8.3 mg/dL (8.5-10.1) Total Bilirubin 1.0 mg/dL (0.2-1.0) Aspartate Amino Transf (AST/SGOT) 157 U/L (15-37) Alanine Aminotransferase (ALT/SGPT) 96 U/L (14-59) Alkaline Phosphatase 128 U/L (46-116) Total Protein 7.7 g/dL (6.4-8.2) Albumin 3.1 g/dL (3.4-5.0) Albumin/Globulin Ratio 0.7 (1.0-1.7) Ethyl Alcohol Level 81 mg/dL (0-10) Bedside Urine HCG, Qualitative Hcg negative (Negative) Phosphorus Level 3.7 mg/dL (2.6-4.7) Magnesium Level 1.6 mg/dL (1.8-2.4) Creatine Kinase 147 U/L (26-192) Review of Systems Review of Systems: Denies fever, denies nausea, denies vomiting, denies shortness of breath. Assessment and Plan Assessmemt and Plan Problems Medical Problems: (1) Alcohol withdrawal seizure Status: Acute (2) Hypokalemia Status: Acute Comment Review of Relevant I have reviewed the following items danny (where applicable) has been applied. Medications: Current Medications Medications (Trade) Dose Ordered Sig/Nishi Route PRN Reason Start Time Stop Time Status Last Admin Dose Admin Lorazepam (Ativan Inj) 1 mg 1X ONCE IVP 05/01/20 12:00 05/01/20 12:01 DC 05/01/20 12:07 Chlordiazepoxide (Librium) 100 mg 1X ONCE PO 05/01/20 12:00 05/01/20 12:01 DC 05/01/20 12:07 Potassium Chloride (Klor-Con) 40 meq 1X ONCE PO 05/01/20 12:00 05/01/20 12:01 DC 05/01/20 12:08 Potassium Chloride/Water 100 ml @ 50 mls/hr 1X ONCE IV 05/01/20 12:15 05/01/20 14:14 DC 05/01/20 13:32 Multivitamins 10 ml/Thiamine HCl 100 mg/Folic Acid 1 mg/Sodium Chloride 1,011.2 ml @ 100 mls/ hr DAILY IV 05/01/20 15:30 05/05/20 19:07 05/02/20 09:25 Chlordiazepoxide (Librium) 50 mg PRN Q1HR PRN PO For CIWA 8-14 05/01/20 15:00 05/02/20 10:41 Haloperidol Lactate (Haldol Inj) 5 mg PRN Q4HRS PRN IVP Hallucinatns,Confusn,Delirium 05/01/20 15:00 05/01/20 16:27 Clonidine HCl (Catapres) 0.1 mg PRN Q1HR PRN PO SBP > 180 or DBP > 100, MRX3 05/01/20 15:00 05/02/20 10:26 Acetaminophen (Tylenol) 650 mg PRN Q6HRS PRN PO headache 05/01/20 17:15 05/02/20 10:05 DC 05/01/20 17:27 Potassium Chloride/Water 100 ml @ 100 mls/hr Q1H IV 05/01/20 18:00 05/01/20 19:59 DC 05/01/20 20:14 Zolpidem Tartrate (Ambien) 5 mg PRN QHS PRN PO INSOMNIA, MAY REPEAT IN 1HR 05/01/20 17:15 05/01/20 23:06 Potassium Chloride (Klor-Con) 40 meq 1X ONCE PO 05/02/20 06:00 05/02/20 06:01 DC 05/02/20 05:32 Justifications for Admission Other Justification Alcohol withdrawal MAURILIO LANDERS MD May 02, 2020 11:06
--- NOTE | 2020-05-02 14:09 | NUR ---
Pt requests to leave the hospital and states she "has to take care of her dogs." This RN informed pt that she will have to leave AMA, as she is not medically cleared. This RN informed pt of the potential risks of leaving and benefits of continued treatment. Pt verbalizes understanding and still requests to leave. Pt encouraged to follow-up with a primary care provider. Dr. Cooper informed of pt wanting to leave AMA. Dr. Cooper spoke with pt in person. This RN notified Carrie, nursing mill supervisor of pt leaving AMA. Security called to escort pt. IV previously removed by IRAIDA Rojas.
--- NOTE | 2020-05-02 14:20 | PDOC3 ---
Discharge Summary Visit Information Date of Admission: May 01, 2020 Date of Discharge: May 02, 2020 Final Diagnosis Problems Medical Problems: (1) Alcohol withdrawal seizure Status: Acute (2) Hypokalemia Status: Acute Brief Hospital Course Allergies Allergies Coded Allergies Type Severity Reaction Last Updated Verified Penicillins Allergy Intermediate 05/02/20 Yes Vital Signs Vital Signs Date Time Temp Pulse Resp B/P (MAP) Pulse Ox O2 Delivery O2 Flow Rate FiO2 05/02/20 11:00 98.1 66 20 169/117 (134) 97 Room Air 98.1 Lab Results Laboratory Tests Test 05/01/20 11:10 05/01/20 11:27 05/01/20 11:36 05/02/20 03:35 Urine Collection Type Unknown Urine Color Sandrine Urine Clarity Clear Urine pH 7.5 (<5.0-8.0) Urine Specific [place] 1.015 (1.000-1.030) Urine Protein 100 mg/dL (NEG-TRACE) Urine Glucose (UA) Negative mg/dL (NEG) Urine Ketones (Stick) Trace mg/dL (NEG) Urine Blood Negative (NEG) Urine Nitrite Negative (NEG) Urine Bilirubin Small (NEG) Urine Urobilinogen Dipstick 1.0 mg/dL (0.2 mg/dL) Urine Leukocyte Esterase Trace (NEG) Urine RBC 0 /HPF (0-2) Urine WBC 1-4 /HPF (0-4) Urine Squamous Epithelial Cells Few /LPF Urine Bacteria Many /HPF (0-FEW) Urine Hyaline Casts Many /HPF White Blood Count 4.1 x10^3/uL (4.0-11.0) 4.5 x10^3/uL (4.0-11.0) Red Blood Count 4.32 x10^6/uL (3.50-5.40) 4.15 x10^6/uL (3.50-5.40) Hemoglobin 14.1 g/dL (12.0-15.5) 13.3 g/dL (12.0-15.5) Hematocrit 40.3 % (36.0-47.0) 39.7 % (36.0-47.0) Mean Corpuscular Volume 93 fL (79-100) 96 fL (79-100) Mean Corpuscular Hemoglobin 33 pg (25-35) 32 pg (25-35) Mean Corpuscular Hemoglobin Concent 35 g/dL (31-37) 34 g/dL (31-37) Red Cell Distribution Width 14.8 % (11.5-14.5) 14.3 % (11.5-14.5) Platelet Count 192 x10^3/uL (140-400) 143 x10^3/uL (140-400) Neutrophils (%) (Auto) 65 % (31-73) 54 % (31-73) Lymphocytes (%) (Auto) 23 % (24-48) 34 % (24-48) Monocytes (%) (Auto) 7 % (0-9) 8 % (0-9) Eosinophils (%) (Auto) 2 % (0-3) 3 % (0-3) Basophils (%) (Auto) 3 % (0-3) 1 % (0-3) Neutrophils # (Auto) 2.7 x10^3/uL (1.8-7.7) 2.4 x10^3/uL (1.8-7.7) Lymphocytes # (Auto) 1.0 x10^3/uL (1.0-4.8) 1.5 x10^3/uL (1.0-4.8) Monocytes # (Auto) 0.3 x10^3/uL (0.0-1.1) 0.4 x10^3/uL (0.0-1.1) Eosinophils # (Auto) 0.1 x10^3/uL (0.0-0.7) 0.2 x10^3/uL (0.0-0.7) Basophils # (Auto) 0.1 x10^3/uL (0.0-0.2) 0.1 x10^3/uL (0.0-0.2) Sodium Level 140 mmol/L (136-145) 140 mmol/L (136-145) Potassium Level 2.3 mmol/L (3.5-5.1) 2.7 mmol/L (3.5-5.1) Chloride Level 99 mmol/L (98-107) 101 mmol/L (98-107) Carbon Dioxide Level 31 mmol/L (21-32) 32 mmol/L (21-32) Anion Gap 10 (6-14) 7 (6-14) Blood Urea Nitrogen 7 mg/dL (7-20) 10 mg/dL (7-20) Creatinine 0.6 mg/dL (0.6-1.0) 0.6 mg/dL (0.6-1.0) Estimated GFR (Cockcroft-Gault) 107.6 107.6 BUN/Creatinine Ratio 12 (6-20) Glucose Level 73 mg/dL (70-99) 86 mg/dL (70-99) Calcium Level 8.0 mg/dL (8.5-10.1) 8.3 mg/dL (8.5-10.1) Total Bilirubin 1.0 mg/dL (0.2-1.0) Aspartate Amino Transf (AST/SGOT) 157 U/L (15-37) Alanine Aminotransferase (ALT/SGPT) 96 U/L (14-59) Alkaline Phosphatase 128 U/L (46-116) Total Protein 7.7 g/dL (6.4-8.2) Albumin 3.1 g/dL (3.4-5.0) Albumin/Globulin Ratio 0.7 (1.0-1.7) Ethyl Alcohol Level 81 mg/dL (0-10) Bedside Urine HCG, Qualitative Hcg negative (Negative) Phosphorus Level 3.7 mg/dL (2.6-4.7) Magnesium Level 1.6 mg/dL (1.8-2.4) Creatine Kinase 147 U/L (26-192) Laboratory Tests Test 05/02/20 03:35 White Blood Count 4.5 x10^3/uL (4.0-11.0) Red Blood Count 4.15 x10^6/uL (3.50-5.40) Hemoglobin 13.3 g/dL (12.0-15.5) Hematocrit 39.7 % (36.0-47.0) Mean Corpuscular Volume 96 fL (79-100) Mean Corpuscular Hemoglobin 32 pg (25-35) Mean Corpuscular Hemoglobin Concent 34 g/dL (31-37) Red Cell Distribution Width 14.3 % (11.5-14.5) Platelet Count 143 x10^3/uL (140-400) Neutrophils (%) (Auto) 54 % (31-73) Lymphocytes (%) (Auto) 34 % (24-48) Monocytes (%) (Auto) 8 % (0-9) Eosinophils (%) (Auto) 3 % (0-3) Basophils (%) (Auto) 1 % (0-3) Neutrophils # (Auto) 2.4 x10^3/uL (1.8-7.7) Lymphocytes # (Auto) 1.5 x10^3/uL (1.0-4.8) Monocytes # (Auto) 0.4 x10^3/uL (0.0-1.1) Eosinophils # (Auto) 0.2 x10^3/uL (0.0-0.7) Basophils # (Auto) 0.1 x10^3/uL (0.0-0.2) Sodium Level 140 mmol/L (136-145) Potassium Level 2.7 mmol/L (3.5-5.1) Chloride Level 101 mmol/L (98-107) Carbon Dioxide Level 32 mmol/L (21-32) Anion Gap 7 (6-14) Blood Urea Nitrogen 10 mg/dL (7-20) Creatinine 0.6 mg/dL (0.6-1.0) Estimated GFR (Cockcroft-Gault) 107.6 Glucose Level 86 mg/dL (70-99) Calcium Level 8.3 mg/dL (8.5-10.1) Phosphorus Level 3.7 mg/dL (2.6-4.7) Magnesium Level 1.6 mg/dL (1.8-2.4) Creatine Kinase 147 U/L (26-192) Brief Hospital Course Ms. Sanders is a 44 old female who presented with alcohol withdrawal, alcohol withdrawal seizure, hypokalemia. Consults were placed to neurology. She was treated appropriately for symptoms of alcohol withdrawal. However on the day following admission patient left AMA as she was concerned about her dog being left at home alone. Discussed the risks of this decision, patient conveyed understanding. Discharge Information Condition at Discharge: Stable Disposition/Orders: Other (Patient left AMA) Justicifation of Admission Dx: Justifications for Admission: Justification of Admission Dx: Yes MAURILIO LANDERS MD May 02, 2020 14:20
--- NOTE | 2020-05-02 14:20 | NUR ---
Pt escorted by security and this RN to significant other's room 536. Visit approved by Carrie nursing paint department supervisor. Pt informed of visiting hours.
[2020-05-06] MEDS ORDERED: THIAMINE IM 200 MG/2 ML VIAL. IM SCH (09:00)
[2020-05-06] MEDS ORDERED: FOLIC ACID 1 MG TABLET. PO SCH (09:00)
[2020-05-06] MEDS ORDERED: MULTIVITAMIN with MINERAL TABLET. PO SCH (09:00)
== END 2020-05-02 14:20 | disposition left against medical advice (07) | DRG 101 ==
LOC: ER 11:01 → 2 NORTH 12:45
PROVIDERS: ADMIT Family Medicine; ATTEND Family Medicine
DX: R56.9 Unspecified convulsions (principal); F10.239 Alcohol dependence with withdrawal, unspecified; E46 Unspecified protein-calorie malnutrition; Z68.1 Body mass index [BMI] 19.9 or less, adult; M79.18 Myalgia, other site; F17.210 Nicotine dependence, cigarettes, uncomplicated; E87.6 Hypokalemia; I10 Essential (primary) hypertension; Z88.0 Allergy status to penicillin; Z80.9 Family history of malignant neoplasm, unspecified; Z82.49 Family history of ischemic heart disease and other diseases of the circulatory system
CPT/HCPCS: 36415; 70551; 80048; 80053; 81001; 81025; 82550; 83735; 84100; 85025; 96365; 96366; 96375; 99285; G0480; J1630; J2060; J3411; J3480; J3490; J7030; G0378

== ENCOUNTER 2020-06-25 18:17 | Emergency (ER) | payer SELFPAY ==
[~2020-06-25] VITALS: Ht 172.7 cm; Wt 48.0 kg
[2020-06-25 19:15] LABS: BASO # 0.1 x10^3/uL (0.0-0.2); BASO % 3 % (0-3); EOS # 0.2 x10^3/uL (0.0-0.7); EOS % 4 % (0-3); HEMATOCRIT 40.4 % (36.0-47.0); HEMOGLOBIN 13.6 g/dL (12.0-15.5); LYMPH # 2.2 x10^3/uL (1.0-4.8); LYMPH % 43 % (24-48); MEAN CORPUSCULAR HEMOGLOBIN 33 pg (25-35); MEAN CORPUSCULAR HGB CONC 34 g/dL (31-37); MEAN CORPUSCULAR VOLUME 97 fL (79-100); MONO # 0.3 x10^3/uL (0.0-1.1); MONO % 6 % (0-9); NEUT # 2.3 x10^3/uL (1.8-7.7); NEUT % 45 % (31-73); PLATELET COUNT 120 x10^3/uL (140-400); RED BLOOD COUNT 4.17 x10^6/uL (3.50-5.40); RED CELL DISTRIBUTION WIDTH 15.7 % (11.5-14.5); WHITE BLOOD COUNT 5.1 x10^3/uL (4.0-11.0)
[2020-06-25 19:31] LABS: ALBUMIN 3.3 g/dL (3.4-5.0); ALBUMIN/GLOBULIN RATIO 0.9 (1.0-1.7); CALCIUM 8.8 mg/dL (8.5-10.1); CREATININE 0.7 mg/dL (0.6-1.0); GFR 89.7; TOTAL BILIRUBIN 0.3 mg/dL (0.2-1.0); TOTAL PROTEIN 7.1 g/dL (6.4-8.2)
[2020-06-25 19:38] LABS: ACETAMIN < 2 mcg/ml (10-30); ETHANOL 433 mg/dL (0-10); SALIC 5.4 mg/dL (2.8-20.0)
[2020-06-25 19:39] LABS: POTASSIUM 2.5 mmol/L (3.5-5.1)
[2020-06-25] MEDS ORDERED: MULTIVIT INFUSN,ADULT 4,VIT K 10 ML, THIAMINE INJ 100 MG, FOLIC ACID INJ 1 MG in IV NOR... IV ONE (20:00)
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
[2020-06-25] MEDS ORDERED: POTASSIUM CHLORIDE 20 MEQ TABLET.ER. PO ONE (21:00)
[2020-06-25 22:23] VITALS: BP 129/86
--- NOTE | 2020-06-26 11:51 | EKG ---
[facility] [address] [place] [address] Test Date: 2020-06-25 Test Time: 18:59:02 Pat Name: SUELLEN DOVER Department: Room: Gender: F Community Engagement Coordinator: : 1975 Requested By: HERMAN FINLEY Order Number: [id number] Reading MD: Measurements Intervals [place] Rate: 84 P: 59 ME: 198 QRS: 62 QRSD: 86 T: 62 QT: 374 QTc: 445 Interpretive Statements SINUS RHYTHM NO SPECIFIC ECG ABNORMALITIES RI6.01 No previous ECG available for comparison
== END 2020-06-25 22:45 | disposition home or self-care (01) ==
LOC: ER 18:17
DX: F10.229 Alcohol dependence with intoxication, unspecified (principal); E87.6 Hypokalemia; R10.13 Epigastric pain; F41.8 Other specified anxiety disorders; F32.9 Major depressive disorder, single episode, unspecified; I10 Essential (primary) hypertension; F17.200 Nicotine dependence, unspecified, uncomplicated; Z98.890 Other specified postprocedural states; Z88.0 Allergy status to penicillin
CPT/HCPCS: 36415; 80053; 80329; 83690; 83735; 85025; 93005; 96365; 99285; G0480; J3411; J3490; J7030